=== PATIENT | male | born 1985 | race Caucasian/White ===

== ENCOUNTER 2017-02-05 12:04 | Emergency (ER) | payer SELFPAY ==
[~2017-02-05] VITALS: Ht 198.1 cm; Wt 175.0 kg
[~2017-02-05 12:04] MED LIST: ALBU1AER INH; DULE100A PO; ERGO50000 PO; PROZ20CA11 PO; SM F10002 PO
[2017-02-05 12:06] VITALS: BP 176/106; PULSE 124; RESP 20; TEMP 98.1; O2SAT 99
[2017-02-05] MEDS ORDERED: SODIUM CHLOR 0.9% 1000 ML INJ 1,000 ML IV SCH (12:43)
[2017-02-05] MEDS ORDERED: LOPERAMIDE HCL 2 MG CAP PO ONE (12:45)
[2017-02-05] MEDS ORDERED: SODIUM CHLORIDE 0.9% FLUSH 10 ML FLUSH IV FLUSH PRN (12:45)
[2017-02-05] MEDS ORDERED: ONDANSETRON HCL 4 MG/2 ML VIAL IM ONE (12:45)
[2017-02-05 12:53] VITALS: O2SAT 97
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
[2017-02-05 13:23] LABS: AUTOMATED NEUTROPHIL # 12.7 TH/MM3 (1.8-7.7); BASOPHIL % 0.2 % (0.0-2.0); EOSINOPHIL # 0.1 TH/MM3 (0-0.4); EOSINOPHIL % 0.7 % (0.0-4.0); HEMATOCRIT 43.1 % (39.0-51.0); HEMO FLAGS DIFF FINAL; LYMPH % 3.3 % (9.0-44.0); LYMPHOCYTE # 0.5 TH/MM3 (1.0-4.8); MEAN CELL VOLUME 86.7 FL (80.0-100.0); MEAN CORPUSCULAR HEMOGLOBIN 29.5 PG (27.0-34.0); MEAN CORPUSCULAR HGB CONC 34.1 % (32.0-36.0); MONO % 5.7 % (0.0-8.0); NEUT % 90.1 % (16.0-70.0); PLATELET COUNT 285 TH/MM3 (150-450); RED BLOOD COUNT 4.97 MIL/MM3 (4.50-5.90); RED CELL DISTRIBUTION WIDTH 13.4 % (11.6-17.2); WHITE BLOOD COUNT 14.1 TH/MM3 (4.0-11.0)
--- NOTE | 2017-02-05 13:42 | PD ---
Physical Exam Date Seen by Provider: Feb 05, 2017 Time Seen by Provider: 13:40 Narrative 31-year-old male here with sudden onset lower abdominal discomfort, and explosive diarrhea 3 since awakening this morning. Patient was seen by Dr. Villa, and labs were ordered including CBC, CMP, as well as meds including Zofran and loperamide. Data Data Last Documented VS Vital Signs Date Time Temp Pulse Resp B/P (MAP) Pulse Ox O2 Delivery O2 Flow Rate FiO2 02/05/17 12:53 97 Room Air 02/05/17 12:06 98.1 124 20 Orders Orders Complete Blood Count With Diff (02/05/17 12:43) Comprehensive Metabolic Panel (02/05/17 12:43) Lipase (02/05/17 12:43) Iv Access Insert/Monitor (02/05/17 12:43) Ecg Monitoring (02/05/17 12:43) Oximetry (02/05/17 12:43) Sodium Chlor 0.9% 1000 Ml Inj (Ns 1000 M (02/05/17 12:43) Sodium Chloride 0.9% Flush (Ns Flush) (02/05/17 12:45) Ondansetron Inj (Zofran Inj) (02/05/17 12:45) Loperamide (Imodium) (02/05/17 12:45) Ondansetron Inj (Zofran Inj) (02/05/17 13:45) Labs Laboratory Tests Test 02/05/17 13:05 White Blood Count 14.1 TH/MM3 Red Blood Count 4.97 MIL/MM3 Hemoglobin 14.7 GM/DL Hematocrit 43.1 % Mean Corpuscular Volume 86.7 FL Mean Corpuscular Hemoglobin 29.5 PG Mean Corpuscular Hemoglobin Concent 34.1 % Red Cell Distribution Width 13.4 % Platelet Count 285 TH/MM3 Mean Platelet Volume 7.6 FL Neutrophils (%) (Auto) 90.1 % Lymphocytes (%) (Auto) 3.3 % Monocytes (%) (Auto) 5.7 % Eosinophils (%) (Auto) 0.7 % Basophils (%) (Auto) 0.2 % Neutrophils # (Auto) 12.7 TH/MM3 Lymphocytes # (Auto) 0.5 TH/MM3 Monocytes # (Auto) 0.8 TH/MM3 Eosinophils # (Auto) 0.1 TH/MM3 Basophils # (Auto) 0.0 TH/MM3 CBC Comment DIFF FINAL Differential Comment Blood Urea Nitrogen 12 MG/DL Creatinine 0.99 MG/DL Random Glucose 101 MG/DL Total Protein 7.4 GM/DL Albumin 3.6 GM/DL Calcium Level 8.8 MG/DL Alkaline Phosphatase 91 U/L Aspartate Amino Transf (AST/SGOT) 41 U/L Alanine Aminotransferase (ALT/SGPT) 66 U/L Total Bilirubin 0.9 MG/DL Sodium Level 138 MEQ/L Potassium Level 4.2 MEQ/L Chloride Level 105 MEQ/L Carbon Dioxide Level 22.7 MEQ/L Anion Gap 10 MEQ/L Estimat Glomerular Filtration Rate 87 ML/MIN Lipase 332 U/L MDM Medical Record Reviewed: Yes Supervised Visit with JULIA: Yes Narrative Course Labs show slight leukocytosis of 14.1, CMP is unremarkable. Patient felt improved with loperamide and Zofran. Patient is discussed with Dr. Cobos is felt to be stable for discharge with diagnosis of gastroenteritis. Patient is sent home with Zofran 4 mg every 6 hours when necessary nausea #20. Patient also given loperamide 2 mg as directed #12. Patient also given ibuprofen 600 mg 4 times a day when necessary #40. Work note given for today and tomorrow. Patient is to rest, push fluids, and follow up if symptoms worsen as needed. Diagnosis Primary Impression: Acute gastroenteritis Additional Impression: Diarrhea Qualified Codes: R19.7 - Diarrhea, unspecified Referrals: Primary Care Physician Patient Instructions: General Instructions Med/Other Pt SpecificInfo: Prescription(s) given Scripts Ibuprofen (Ibuprofen) 600 Mg Tab 600 MG PO Q6H Y for Pain/Inflammation, #40 TAB 0 Refills Prov: Fadumo Cobos MD 02/05/17 Loperamide (Loperamide) 2 Mg Cap 2 MG PO DIRECTED Y for DIARRHEA, #12 CAP 0 Refills One capsule after each loose stool. Not to exceed 8 capsules per day. Prov: Fadumo Cobos MD 02/05/17 Ondansetron (Zofran) 4 Mg Tab 4 MG PO Q6HR Y for NAUSEA OR VOMITING, #20 TAB 0 Refills Prov: Fadumo Cobos MD 02/05/17 Condition: Stable Wyatt Fuentes Feb 05, 2017 13:41
[2017-02-05 13:44] LABS: ALKALINE PHOSPHATASE 91 U/L (45-117); ALT (GPT) 66 U/L (12-78); TOTAL BILIRUBIN ADULT 0.9 MG/DL (0.2-1.0)
[2017-02-05 13:45] LABS: ANION GAP 10 MEQ/L (5-15); BICARBONATE 22.7 MEQ/L (21.0-32.0); BLOOD UREA NITROGEN 12 MG/DL (7-18); CHLORIDE 105 MEQ/L (98-107); GLOMERULAR FILTRATION RATE 87 ML/MIN (>89); SODIUM (NA) 138 MEQ/L (136-145)
[2017-02-05] MEDS ORDERED: ONDANSETRON HCL 4 MG/2 ML VIAL IV PUSH ONE (13:45)
[2017-02-05 13:47] LABS: AST (GOT) 41 U/L (15-37); POTASSIUM 4.2 MEQ/L (3.5-5.1)
[2017-02-05] MEDS ORDERED: ZOFR4TAB PO (14:25)
[2017-02-05] MEDS ORDERED: IBUP-232 PO (14:25)
[2017-02-05] MEDS ORDERED: LOPE2CAP PO (14:25)
== END 2017-02-05 15:15 | disposition home or self-care (01) ==
LOC: NEPD 12:04 → UNDOADMIN 14:33 → NEDA 14:33 → NEPD 15:15
DX: K52.9 Noninfective gastroenteritis and colitis, unspecified (principal); D72.829 Elevated white blood cell count, unspecified
CPT/HCPCS: 80053; 83690; 85025; 96361; 96374; 99285; J2405; J7030